=== PATIENT | female | born 1960 | race Caucasian/White ===

== ENCOUNTER 2018-03-25 10:12 | Day surgery (SDC) | payer BC, OTHER ==
[~2018-03-25 10:12] MED LIST: Lactated Ringers 1,000 ML IV SCH; Lidocaine 2% 5 ML SDV ONE; Midazolam 1 MG/ML 2 ML SDV ONE; Propofol 200 MG/20 ML SDV ONE; ePHEDrine 50 MG/ML SDV ONE; fentaNYL 100 MCG/2 ML SDV ONE
--- NOTE | 2018-03-25 10:58 | PCM.PREANE ---
Preanesthetic Assessment - Anesthesia/Transfusion/Family Hx Anesthesia History: Prior Anesthesia Reaction Type of Anesthesia Reaction: Excessive Nausea/Vomiting Other Type of Anesthesia Reaction Comment: sister has hard time coming out of anesthesia Family History of Anesthesia Reaction: No Transfusion History: Prior Transfusion Without Reaction - Review of Systems General: No Symptoms Pulmonary: No Symptoms Cardiovascular: No Symptoms Neurological: No Symptoms Other: Reports: None - Physical Assessment NPO Status Date: 03/24/18 Height: 1.68 m Weight: 131.542 kg ASA Class: 3 Mental Status: Alert & Oriented x3 Airway Class: Mallampati = 1 Dentition: Reports: Normal Dentition ROM/Head Extension: Full Lungs: Clear to Auscultation, Normal Respiratory Effort Cardiovascular: Regular Rate, Regular Rhythm - Lab Values: Laboratory Last Values POC Glucose 118 mg/dL (60-110) H 03/25/18 10:39 - Allergies Allergies/Adverse Reactions: Allergies Allergy/AdvReac Type Severity Reaction Status Date / Time bee venom protein (honey bee) Allergy Swelling Verified 03/20/18 10:23 erythromycin base Allergy Swelling Verified 03/20/18 10:00 [Erythromycin Base] - Blood Blood Available: No - Anesthesia Plan Pre-Op Medication Ordered: None - Acknowledgements Anesthesia Type Planned: MAC Pt an Appropriate Candidate for the Planned Anesthesia: Yes Alternatives and Risks of Anesthesia Discussed w Pt/Guardian: Yes Pt/Guardian Understands and Agrees with Anesthesia Plan: Yes Additional Comments: PMH: hx of parox a fib, stopped eliquis 2.5 day ago, olga, htn, olga, dm2, thyroid replacement, hx of pituitary tumor PreAnesthesia Questionnaire HEENT History: Reports: Other (See Below) Other HEENT History: top and bottom denture Cardiovascular History: Reports: Afib, Hypertension Respiratory History: Reports: Sleep Apnea Other Respiratory History: uses CPAP Gastrointestinal History: Reports: GERD Genitourinary History: Reports: None RESOLUTION MANAGER History: Reports: Musculoskeletal History: Reports: Arthritis Neurological History: Reports: Concussion, Migraines, Seizure Other Neuro History: 1 seizure in 2000 due to pituitary tumor Endocrine/Metabolic History: Reports: Diabetes, Type II, Hypothyroidism, Obesity /BMI 30+ Other Endocrine/Metabolic History: pituitary tumor Hematologic History: Reports: Blood Transfusion(s) Other Hematologic History: hx of transfusion for post bleed - Past Surgical History Head Surgeries/Procedures: Reports: None GI Surgical History: Reports: Colonoscopy Female Surgical History: Reports: Section, Hysterectomy, Tubal Ligation Musculoskeletal Surgical History: Reports: Other (See Below) Other Musculoskeletal Surgeries/Procedures:: removal of foreign body from rt big toe under anesthesia - SUBSTANCE USE Smoking Status *Q: Never Smoker Recreational Drug Use History: No - HOME MEDS Home Medications: Home Meds Benazepril [Lotensin] 40 mg PO DAILY 11/18/13 [History] Lansoprazole [Prevacid] 30 mg PO DAILY 11/18/13 [History] Levothyroxine [Synthroid] 225 mcg PO DAILY 11/18/13 [History] Metoprolol Succinate 200 mg PO BID 11/18/13 [History] hydroCHLOROthiazide [Hydrochlorothiazide] 50 mg PO DAILY 11/18/13 [History] Apixaban [Eliquis] 5 mg PO BID 03/20/18 [History] Azelastine HCl [Azelastine] 1 drop EYEBOTH ASDIRECTED PRN 03/20/18 [History] Cholecalciferol (Vitamin D3) [Vitamin D3] 1 tab PO DAILY 03/20/18 [History] Cholecalciferol (Vitamin D3) [Vitamin D3] 2 tab PO BEDTIME 03/20/18 [History] Diltiazem HCl [Dilt-Xr] 180 mg PO BEDTIME 03/20/18 [History] Empagliflozin [Jardiance] 10 mg PO DAILY 03/20/18 [History] Fish Oil/Doyline-3 Fatty Acids [Fish Oil 1,000 MG] 1,000 mg PO DAILY 03/20/18 [ History] Gluc 2KCl/Chondr/Lis Hy/Hy Ac [Glucosamine & Chondroitin Cap] 1 tab PO DAILY [History] Linagliptin [Tradjenta] 5 mg PO DAILY 03/20/18 [History] Montelukast [Singulair] 10 mg PO DAILY 03/20/18 [History] Nitroglycerin 0.4 mg SL ASDIRECTED PRN 03/20/18 [History] Pregabalin [Lyrica] 100 mg PO BEDTIME 03/20/18 [History] metFORMIN HCl [Glucophage] 2 tab PO BID 03/20/18 [History] - CURRENT (IN HOUSE) MEDS Current Meds: Current Medications Lactated Ringer's (Ringers, Lactated) 1,000 mls @ 125 mls/hr IV ASDIRECTED TIM Discontinued Medications Ephedrine Sulfate (Ephedrine Sulfate) Confirm Administered Dose 50 mg .ROUTE .STK-MED ONE Stop: 03/25/18 08:27 Fentanyl (Sublimaze) Confirm Administered Dose 100 mcg .ROUTE .STK-MED ONE Stop: 03/25/18 08:27 Lidocaine (Xylocaine-Mpf 2%) Confirm Administered Dose 5 ml .ROUTE .STK-MED ONE Stop: 03/25/18 08:27 Midazolam HCl (Versed 1 Mg/Ml) Confirm Administered Dose 2 mg .ROUTE .STK-MED ONE Stop: 03/25/18 08:27 Propofol (Diprivan 20 Ml) Confirm Administered Dose 200 mg .ROUTE .STK-MED ONE Stop: 03/25/18 08:26
[2018-03-25] MEDS ORDERED: Glycopyrrolate 0.2 MG/ML SDV ONE (11:33)
[2018-03-25] MEDS ORDERED: Ondansetron 4 MG/2 ML SDV IVPUSH PRN (12:06)
[2018-03-25] MEDS ORDERED: Sodium Chloride 0.9% 2.5 ML Syringe FLUSH PRN (12:06)
[2018-03-25] MEDS ORDERED: Sodium Chloride 0.9% 10 ML Syringe FLUSH PRN (12:06)
--- NOTE | 2018-03-25 12:10 | PCM.OPNOTE ---
- General Post-Op/Procedure Note Date of Surgery/Procedure: 03/25/18 Operative Procedure(s): Esophagogastroduodenoscopy with gastric and esophageal biopsies Pre Op Diagnosis: Progressive hoarseness. Family history of esophageal webs. Post-Op Diagnosis: Gastritis. Esophageal polyp. Anesthesia Technique: MAC (ASA III) Primary Surgeon: Darion Jamison Caterer'S Aide: Emile Eisenberg Condition: Good Free Text/Narrative:: DICTATION [id number] CPT CODE 50026
--- NOTE | 2018-03-25 12:19 | PCM.POSTAN ---
POST ANESTHESIA ASSESSMENT - MENTAL STATUS Mental Status: Alert, Oriented - RESPIRATORY Respiratory Status: Respiratory Rate WNL, Airway Patent, O2 Saturation Stable - CARDIOVASCULAR CV Status: Pulse Rate WNL, Blood Pressure Stable - GASTROINTESTINAL GI Status: No Symptoms - PAIN Pain Score: 0 - POST OP HYDRATION Hydration Status: Adequate & Stable
--- NOTE | 2018-03-25 12:25 | PCM48HPAN ---
Post Anesthesia Note - EVALUATION WITHIN 48HRS OF ANESTHETIC Vital Signs in Normal Range: Yes Patient Participated in Evaluation: Yes Respiratory Function Stable: Yes Airway Patent: Yes Cardiovascular Function Stable: Yes Hydration Status Stable: Yes Pain Control Satisfactory: Yes Nausea and Vomiting Control Satisfactory: Yes Mental Status Recovered: Yes Resp Rate: 20
--- NOTE | 2018-03-25 13:14 | OR ---
SURGEON: Darion Jamison M.D. DATE OF PROCEDURE: 03/25/2018 OPERATION PERFORMED: Esophagogastroduodenoscopy with gastric and esophageal biopsies. BIOMEDICAL EQUIPMENT TECH: Dr. Osorio, PGY2. ASA CLASSIFICATION: III. PREOPERATIVE DIAGNOSES: 1. Progressive hoarseness. 2. Family history of esophageal webs. POSTOPERATIVE DIAGNOSES: 1. Mild gastritis. 2. Esophageal polyp. DESCRIPTION OF PROCEDURE: The patient was taken to the endoscopy room and maintained on the endoscopy table in the supine position. Time-out was called for appropriate identification of the patient and procedure. Monitored anesthesia care was provided. The bite block was placed between the patient's teeth. The gastroscope was inserted through the bite block into the oropharynx and advanced without difficulty through the esophagus and stomach into the duodenum where examination was carried out in a retrograde fashion. The duodenum showed no acute inflammatory changes or ulcerations. The stomach does show mild gastritis and biopsies of this area were obtained. The scope was then retroflexed to visualize the proximal stomach. No significant hiatal hernia was noted. The GE junction was well defined and shows no acute inflammatory changes or ulcerations. The distal esophagus shows no inflammatory changes or ulcerations. The esophagus itself demonstrates good contractility. There was a plaque-like polypoid lesion in the mid esophagus at approximately 30 cm. This was removed with cold biopsy forceps and sent for separate histologic analysis. The scope was then slowly withdrawn visualizing the vocal cords as the scope was withdrawn. The vocal cords were noted to move symmetrically and no vocal cord lesions were identified. There were no acute inflammatory changes. The gastroscope was then removed with the patient having tolerated the procedure well. She was taken to recovery room in stable condition. LAINE DOWNING /[id number]
== END 2018-03-25 13:10 | disposition home or self-care (01) ==
LOC: MW.SDS 10:12
PROVIDERS: ATTEND Surgery
DX: D13.0 Benign neoplasm of esophagus (principal); K29.50 Unspecified chronic gastritis without bleeding; E11.9 Type 2 diabetes mellitus without complications; I10 Essential (primary) hypertension; E66.9 Obesity, unspecified; Z68.42 Body mass index [BMI] 45.0-49.9, adult; G47.33 Obstructive sleep apnea (adult) (pediatric); M19.90 Unspecified osteoarthritis, unspecified site; K21.9 Gastro-esophageal reflux disease without esophagitis; E03.9 Hypothyroidism, unspecified; G43.909 Migraine, unspecified, not intractable, without status migrainosus; M06.9 Rheumatoid arthritis, unspecified; J30.9 Allergic rhinitis, unspecified; Z79.84 Long term (current) use of oral hypoglycemic drugs; Z79.899 Other long term (current) drug therapy; Z88.1 Allergy status to other antibiotic agents; Z91.030 Bee allergy status; Z83.79 Family history of other diseases of the digestive system
CPT/HCPCS: 43239; 82962; J2250; J2704; J3010; J3490; J7120; 88305; 88312